=== PATIENT | female | born 1935 | race Caucasian/White ===

== ENCOUNTER 2020-04-06 15:56 | Emergency (ER) | payer MEDICARE, MEDICAID ==
[~2020-04-06] VITALS: Ht 157.5 cm; Wt 81.4 kg
--- NOTE | 2020-04-06 16:03 | NUR ---
PT DAUGHTER (AGUILAR) [phone]
[2020-04-06] MEDS ORDERED: pantoprazole 40mg Tablet.DR PO ONE (16:25)
[2020-04-06] MEDS ORDERED: mag hydrox/Alum hydrox/simeth 30ml oral suspension PO ONE (16:25)
[2020-04-06 17:27] LABS: ALANINE AMINOTRANSFERASE 19 U/L (12-78); ALBUMIN/GLOBULIN RATIO 0.8 (1.1-1.5); ALKALINE PHOSPHATASE 67 IU/L (46-116); ANION GAP 9 (8-16); ASPARTATE AMINO TRANSFERASE 28 U/L (10-37); BILIRUBIN,TOTAL 0.7 MG/DL (0.1-1.0); BLOOD UREA NITROGEN 24 MG/DL (7-18); BUN/CREATININE RATIO 14.7 (6.6-38.0); CALCIUM 8.2 MG/DL (8.5-10.1); CHLORIDE 100 MMOL/L (99-107); CREATININE 1.63 MG/DL (0.40-0.90); GLUCOSE 117 MG/DL (70-104); LIPASE 397 U/L (73-393); POTASSIUM 3.2 MMOL/L (3.5-5.1); SODIUM 138 MMOL/L (135-145); TOTAL CARBON DIOXIDE 29.3 MMOL/L (24-32); TOTAL PROTEIN 6.8 G/DL (6.4-8.2); eGFR 30 ML/MIN
[2020-04-06 17:40] LABS: BASOPHILS % (AUTO) 0.4 % (0-1); EOSINOPHILS # (AUTO) 0.2 X10'3 (0-0.9); HEMATOCRIT 29.9 % (35.0-45.0); HEMOGLOBIN 10.2 g/dl (12.0-16.0); LYMPHOCYTES # (AUTO) 0.7 X10'3 (1.1-4.8); LYMPHOCYTES % (AUTO) 9.2 % (21-51); MEAN CORPUSCULAR HEMOGLOBIN 29.3 PG (27.0-31.0); MEAN CORPUSCULAR VOLUME 86.3 FL (78-98); MEAN PLATELET VOLUME 7.6 FL (7.4-10.4); MONOCYTES # (AUTO) 0.7 X10'3 (0-0.9); MONOCYTES % (AUTO) 9.8 % (2-12); NEUTROPHILS # (AUTO) 5.8 X10'3 (1.8-7.7); NEUTROPHILS % (AUTO) 78.6 % (42-75); PLATELET COUNT 176 X10'3 (140-440); RED BLOOD COUNT 3.47 X10'6 (4.20-5.60); RED CELL DISTRIBUTION WIDTH 15.7 % (11.5-14.5); WHITE BLOOD COUNT 7.4 X10'3 (4.5-11.0)
--- NOTE | 2020-04-06 18:22 | NUR ---
Ultrasound called and tech will be here in approx 20 min.
[2020-04-06] MEDS ORDERED: normal saline 1000ML IV soln IVB ONE (19:20)
[2020-04-06] MEDS ORDERED: pantoprazole 40 MG vial IV ONE (19:30)
[2020-04-06 20:41] VITALS: BP 98/58
== END 2020-04-06 20:49 | disposition home or self-care (01) ==
LOC: ER 15:56
DX: K85.90 Acute pancreatitis without necrosis or infection, unspecified (principal); G89.29 Other chronic pain; Z90.49 Acquired absence of other specified parts of digestive tract; Z98.890 Other specified postprocedural states; Z88.5 Allergy status to narcotic agent
CPT/HCPCS: 36415; 74018; 74176; 76700; 80053; 83690; 84484; 85025; 96374; 99285; C9113; J7030; 93005

== ENCOUNTER 2020-08-21 02:01 | Emergency (ER) | payer MEDICARE, MEDICAID ==
[~2020-08-21] VITALS: Ht 160 cm; Wt 81.8 kg
[2020-08-21] MEDS ORDERED: fentaNYL/PF 50MCG/1 ML 2ML syringe IV ONE (02:45)
[2020-08-21] MEDS ORDERED: acetaminophen 325mg tablet PO ONE (02:45)
[2020-08-21] MEDS ORDERED: ondansetron/PF 4mg/2ml inj IV ONE (02:45)
--- NOTE | 2020-08-21 05:01 | NUR ---
VASCULAR PAGED AT [phone]
--- NOTE | 2020-08-21 05:14 | NUR ---
VASCULAR CONTACTED [phone]. LEFT MESSAGE
[2020-08-21] MEDS ORDERED: morphine 4 MG/ML inj SYRINge IV ONE (05:45)
[2020-08-21 08:10] VITALS: BP 186/110
--- NOTE | 2020-08-21 09:30 | NUR ---
SPOKE WITH PT'S FRIEND MOLINA, SHE STATES SHE WILL BE HERE IN 45 MINUTES TO INCREMENT MANAGER PT.
== END 2020-08-21 10:17 | disposition home or self-care (01) ==
LOC: ER 02:02
DX: M71.21 Synovial cyst of popliteal space [Baker], right knee (principal); M54.2 Cervicalgia; G89.29 Other chronic pain; Z90.49 Acquired absence of other specified parts of digestive tract; Z88.8 Allergy status to other drugs, medicaments and biological substances
CPT/HCPCS: 29505; 70450; 72125; 73564; 93971; 96374; 96375; 99285; J2270; J2405; J3010

== ENCOUNTER 2021-09-15 09:37 | Emergency (ER) | payer MEDICARE, MEDICAID ==
[~2021-09-15] VITALS: Ht 157.5 cm; Wt 82.1 kg
[~2021-09-15 09:37] MED LIST: AMLO10TA13 PO; ASPI-10 PO; ATOR40TA72 PO; CHOL100025 PO; FLUO40CA PO; GABA300C PO; LEVO50TA8 PO; MAGN200T PO; METO-384 PO; PANT40TA54 PO; POTA-197 PO; PRAM0.5T12 PO; VIT1CAPS9 PO; VITA1TAB37 PO
[2021-09-15 10:42] LABS: BASOPHILS % (AUTO) 0.5 % (0-1); EOSINOPHILS # (AUTO) 0.2 X10'3 (0-0.9); EOSINOPHILS % (AUTO) 2.2 % (0-6); HEMATOCRIT 35.5 % (35.0-45.0); HEMOGLOBIN 11.9 g/dl (12.0-16.0); LYMPHOCYTES # (AUTO) 0.7 X10'3 (1.1-4.8); LYMPHOCYTES % (AUTO) 10.9 % (21-51); MEAN CORPUSCULAR HEMOGLOBIN 31.2 PG (27.0-31.0); MEAN CORPUSCULAR HGB CONC 33.5 g/dL (33.0-36.5); MEAN CORPUSCULAR VOLUME 93.1 FL (78-98); MEAN PLATELET VOLUME 7.7 FL (7.4-10.4); MONOCYTES # (AUTO) 0.6 X10'3 (0-0.9); MONOCYTES % (AUTO) 8.7 % (2-12); NEUTROPHILS # (AUTO) 5.3 X10'3 (1.8-7.7); NEUTROPHILS % (AUTO) 77.7 % (42-75); PLATELET COUNT 194 X10'3 (140-440); RED BLOOD COUNT 3.82 X10'6 (4.20-5.60); RED CELL DISTRIBUTION WIDTH 14.8 % (11.5-14.5); WHITE BLOOD COUNT 6.9 X10'3 (4.5-11.0)
[2021-09-15 11:00] LABS: ALANINE AMINOTRANSFERASE 21 U/L (12-78); ALBUMIN 3.5 G/DL (3.4-5.0); ALKALINE PHOSPHATASE 70 IU/L (46-116); ANION GAP 12 (8-16); ASPARTATE AMINO TRANSFERASE 22 U/L (10-37); BILIRUBIN,TOTAL 0.6 MG/DL (0.1-1.0); BLOOD UREA NITROGEN 39 MG/DL (7-18); BUN/CREATININE RATIO 25.3 (6.6-38.0); CALCIUM 7.8 MG/DL (8.5-10.1); CHLORIDE 105 MMOL/L (99-107); CREATININE 1.54 MG/DL (0.40-0.90); GLUCOSE 107 MG/DL (70-104); POTASSIUM 4.4 MMOL/L (3.5-5.1); SODIUM 145 MMOL/L (135-145); TOTAL CARBON DIOXIDE 28.5 MMOL/L (24-32); TOTAL PROTEIN 7.1 G/DL (6.4-8.2); eGFR 32 ML/MIN
[2021-09-15] MEDS ORDERED: ondansetron/PF 4mg/2ml inj IV ONE (11:40)
[2021-09-15] MEDS ORDERED: morphine 4 MG/ML inj SYRINge IV ONE (11:40)
[2021-09-15 12:04] LABS: UA COLLECTION TYPE NON-SPECIFIED
[2021-09-15 12:05] LABS: CLARITY,URINE SLIGHTLY CLOUDY (Clear); COLOR,URINE YELLOW (Yellow); GLUCOSE, URINE NEGATIVE (Neg); KETONES,URINE NEGATIVE (Neg); LEUKOCYTE ESTERASE ,URINE NEGATIVE (Neg); NITRITES, URINE NEGATIVE (Neg); OCCULT BLOOD,URINE NEGATIVE (Neg); PROTEIN,URINE 30 mg/dl (Neg); UROBILINOGEN,URINE 0.2 E.U/dL (0.2-1.0)
[2021-09-15 12:14] LABS: BACTERIA,URINE 1+ /HPF (Neg); RBC,URINE NONE SEEN /HPF (0-2)
[2021-09-15 12:15] LABS: MUCUS STRANDS NONE SEEN /LPF (Neg); SQUAMOUS EPITHELIAL CELL,UR MANY /LPF (FEW); WBC CLUMPS,URINE FEW /HPF (NEGATIVE)
[2021-09-15 12:17] LABS: TRANSITIONAL EPI CELLS,URINE MODERATE /HPF
[2021-09-15 12:40] VITALS: BP 136/72
== END 2021-09-15 14:25 | disposition home or self-care (01) ==
LOC: ER 09:39
DX: M25.532 Pain in left wrist (principal); M25.522 Pain in left elbow; R10.12 Left upper quadrant pain; G89.29 Other chronic pain; Z87.81 Personal history of (healed) traumatic fracture; Z87.19 Personal history of other diseases of the digestive system; Z90.49 Acquired absence of other specified parts of digestive tract; Z79.82 Long term (current) use of aspirin; Z79.899 Other long term (current) drug therapy; Z88.5 Allergy status to narcotic agent; Z88.8 Allergy status to other drugs, medicaments and biological substances
CPT/HCPCS: 36415; 71250; 73030; 73080; 73090; 73502; 73564; 74176; 80053; 81001; 85025; 96374; 96375; 99285; J2270; J2405

== ENCOUNTER 2021-10-10 11:49 | Emergency (ER) | payer MEDICARE, MEDICAID ==
[~2021-10-10] VITALS: Ht 157.5 cm; Wt 81.8 kg
[2021-10-10] MEDS ORDERED: ONDA-103 PO ×2 (15:41)
[2021-10-10 16:14] VITALS: BP 114/85
== END 2021-10-10 16:17 | disposition home or self-care (01) ==
LOC: ER 11:50
DX: M79.604 Pain in right leg (principal); G62.9 Polyneuropathy, unspecified; G89.29 Other chronic pain; F17.200 Nicotine dependence, unspecified, uncomplicated; Z87.440 Personal history of urinary (tract) infections; Z90.89 Acquired absence of other organs; Z90.49 Acquired absence of other specified parts of digestive tract; Z98.890 Other specified postprocedural states; Z88.5 Allergy status to narcotic agent; Z88.8 Allergy status to other drugs, medicaments and biological substances; Z79.82 Long term (current) use of aspirin; Z79.899 Other long term (current) drug therapy
CPT/HCPCS: 99285

== ENCOUNTER 2022-03-05 11:58 | Inpatient (IN) | payer MEDICARE, MEDICAID ==
[~2022-03-05] VITALS: Ht 165.1 cm; Wt 83.1 kg
[~2022-03-05 11:58] MED LIST changes: +AMOX1TAB PO; +HYDR-3968 PO; +LORA10TA7 PO; +PENT400T17 PO; +ROPI1TAB6 PO
[2022-03-05 12:25] LABS: BASOPHILS % (AUTO) 0.5 % (0-1); EOSINOPHILS # (AUTO) 0.2 X10'3 (0-0.9); EOSINOPHILS % (AUTO) 2.8 % (0-6); HEMATOCRIT 36.8 % (35.0-45.0); HEMOGLOBIN 12.2 g/dl (12.0-16.0); LYMPHOCYTES # (AUTO) 0.9 X10'3 (1.1-4.8); LYMPHOCYTES % (AUTO) 14.5 % (21-51); MEAN CORPUSCULAR HEMOGLOBIN 29.2 PG (27.0-31.0); MEAN CORPUSCULAR HGB CONC 33.2 g/dL (33.0-36.5); MEAN PLATELET VOLUME 8.2 FL (7.4-10.4); MONOCYTES # (AUTO) 0.5 X10'3 (0-0.9); MONOCYTES % (AUTO) 7.5 % (2-12); NEUTROPHILS # (AUTO) 4.7 X10'3 (1.8-7.7); NEUTROPHILS % (AUTO) 74.7 % (42-75); PLATELET COUNT 199 X10'3 (140-440); RED BLOOD COUNT 4.19 X10'6 (4.20-5.60); RED CELL DISTRIBUTION WIDTH 15.9 % (11.5-14.5); WHITE BLOOD COUNT 6.3 X10'3 (4.5-11.0)
[2022-03-05 12:39] LABS: APTT 26 SECONDS (22-32)
[2022-03-05 12:42] LABS: ALANINE AMINOTRANSFERASE 10 U/L (12-78); ALBUMIN 3.3 G/DL (3.4-5.0); ALBUMIN/GLOBULIN RATIO 0.9 (1.1-1.5); ALKALINE PHOSPHATASE 73 IU/L (46-116); ANION GAP 9 (8-16); ASPARTATE AMINO TRANSFERASE 18 U/L (10-37); BILIRUBIN,TOTAL 0.3 MG/DL (0.1-1.0); BLOOD UREA NITROGEN 26 MG/DL (7-18); CALCIUM 8.1 MG/DL (8.5-10.1); CHLORIDE 104 MMOL/L (99-107); GLUCOSE 106 MG/DL (70-104); POTASSIUM 3.8 MMOL/L (3.5-5.1); SODIUM 142 MMOL/L (135-145); TOTAL PROTEIN 6.8 G/DL (6.4-8.2); eGFR 39 ML/MIN
[2022-03-05] MEDS ORDERED: acetaminophen 325mg tablet PO PRN (15:00)
[2022-03-05] MEDS ORDERED: ondansetron/PF 4mg/2ml inj IV PRN (15:00)
[2022-03-05] MEDS ORDERED: potassium CL 10mEq/100ml bag 100 ML IV PRN (15:00)
[2022-03-05] MEDS ORDERED: magnesium 2GM in 50ml NS 50 ML IV PRN (15:00)
[2022-03-05] MEDS ORDERED: POTASSIUM BICARB 20meq eff tab 20 MEQ TABLET.EFF PO PRN (15:00)
[2022-03-05] MEDS: normal saline 1000ml 1,000 ML IV SCH ×2 (15:00→20:39)
[2022-03-05] MEDS ORDERED: magnesium 4gm in 100ml NS 100 ML IV PRN (15:00)
[2022-03-05] MEDS ORDERED: magnesium Cl slow-release 64mg tablet PO PRN (15:00)
--- NOTE | 2022-03-05 16:05 | NUR ---
TC FROM DAUGHTER, KYARA CARTWRIGHT, FOR CONDITION REPORT.
[2022-03-05] MEDS ORDERED: ATOR40TA71 PO (16:11)
[2022-03-05] MEDS ORDERED: DULO60CA65 PO (16:15)
[2022-03-05] MEDS ORDERED: HYDR-3968 PO (16:15)
[2022-03-05] MEDS ORDERED: GABA300C PO (16:15)
[2022-03-05] MEDS ORDERED: LEVO50TA8 PO (16:18)
[2022-03-05] MEDS ORDERED: LORA10TA7 PO (16:18)
[2022-03-05] MEDS ORDERED: PANT-47 PO (16:19)
[2022-03-05] MEDS ORDERED: PENT400T17 PO (16:19)
[2022-03-05] MEDS ORDERED: LOSA50TA64 PO (16:20)
[2022-03-05] MEDS ORDERED: ROPI1TAB6 PO (16:22)
[2022-03-05] MEDS ORDERED: CYAN-34 PO (16:24)
[2022-03-05 19:35] VITALS: BP 146/78
--- NOTE | 2022-03-05 19:35 | NUR ---
PATIENT ADMITTED TO ROOM 4017 FROM ER FOR STROKE LIKE SYMPTOMS AND CKD 3. PLACED COMFORTABLE IN BED VITAL SIGNS TAKEN AND RECORDED.
[2022-03-05] MEDS: K and/or MAG REPLACEMENT MC SCH (20:00)
[2022-03-05] MEDS: heparin, porcine 5000 units/ml vial SQ SCH (20:47)
[2022-03-05] MEDS ORDERED: temazepam 15mg capsule PO PRN (21:00)
[2022-03-05] MEDS: ROPINIRole 1mg tablet PO SCH (21:08)
[2022-03-05] MEDS: gabapentin 300mg capsule PO SCH (21:09)
[2022-03-05] MEDS: pantoprazole 40mg Tablet.DR PO SCH (21:09)
[2022-03-05 22:00] VITALS: BP 155/84
[2022-03-06 02:00] VITALS: BP 98/65
[2022-03-06] MEDS: acetaminophen 325mg tablet PO PRN ×3 (02:49→23:39)
[2022-03-06 06:30] VITALS: BP 191/80
--- NOTE | 2022-03-06 06:30 | NUR ---
Problems reprioritized. Patient report given, questions answered & plan of care reviewed with TABITHA LINK.
[2022-03-06 06:59] LABS: BASOPHILS % (AUTO) 0.4 % (0-1); EOSINOPHILS # (AUTO) 0.2 X10'3 (0-0.9); EOSINOPHILS % (AUTO) 3.7 % (0-6); HEMATOCRIT 36.8 % (35.0-45.0); HEMOGLOBIN 12.4 g/dl (12.0-16.0); LYMPHOCYTES # (AUTO) 1.1 X10'3 (1.1-4.8); LYMPHOCYTES % (AUTO) 19.2 % (21-51); MEAN CORPUSCULAR HEMOGLOBIN 29.9 PG (27.0-31.0); MEAN CORPUSCULAR HGB CONC 33.6 g/dL (33.0-36.5); MEAN CORPUSCULAR VOLUME 88.7 FL (78-98); MEAN PLATELET VOLUME 8.2 FL (7.4-10.4); MONOCYTES # (AUTO) 0.4 X10'3 (0-0.9); MONOCYTES % (AUTO) 7.5 % (2-12); NEUTROPHILS % (AUTO) 69.2 % (42-75); PLATELET COUNT 167 X10'3 (140-440); RED BLOOD COUNT 4.15 X10'6 (4.20-5.60); RED CELL DISTRIBUTION WIDTH 15.8 % (11.5-14.5); WHITE BLOOD COUNT 5.8 X10'3 (4.5-11.0)
[2022-03-06 07:07] LABS: ALANINE AMINOTRANSFERASE 11 U/L (12-78); ALBUMIN/GLOBULIN RATIO 0.9 (1.1-1.5); ALKALINE PHOSPHATASE 66 IU/L (46-116); ANION GAP 12 (8-16); ASPARTATE AMINO TRANSFERASE 19 U/L (10-37); BILIRUBIN,TOTAL 0.6 MG/DL (0.1-1.0); BLOOD UREA NITROGEN 22 MG/DL (7-18); CALCIUM 7.9 MG/DL (8.5-10.1); CHLORIDE 103 MMOL/L (99-107); CHOL/HDL RATIO 2.8 (0.00-4.99); CHOLESTEROL 113 MG/DL (0-200); CREATININE 1.22 MG/DL (0.40-0.90); GLUCOSE 100 MG/DL (70-104); HDL CHOLESTEROL 41 MG/DL (35-60); LDL CHOLESTEROL 45 MG/DL (50-100); SODIUM 144 MMOL/L (135-145); TOTAL CARBON DIOXIDE 29.5 MMOL/L (24-32); TOTAL PROTEIN 6.2 G/DL (6.4-8.2); TRIGLYCERIDES 152 MG/DL (20-135); eGFR 42 ML/MIN
--- NOTE | 2022-03-06 07:21 | NUR ---
PAGER ID: [phone] MESSAGE: [phone] Kellie Morillo: Critical K 3.0. Replacement ordered already and will be started. thanks! lien [id number]
[2022-03-06] MEDS: POTASSIUM BICARB 20meq eff tab 20 MEQ TABLET.EFF PO PRN ×3 (07:34→17:05)
[2022-03-06] MEDS: losartan 50mg tablet PO SCH (07:35)
[2022-03-06] MEDS: gabapentin 300mg capsule PO SCH ×2 (07:35→20:12)
[2022-03-06] MEDS: levoTHYROXINE 25mcg tablet PO SCH (07:35)
[2022-03-06] MEDS: loratadine 10mg tablet PO SCH (07:35)
[2022-03-06] MEDS: ROPINIRole 1mg tablet PO SCH ×3 (07:37→20:12)
[2022-03-06] MEDS: atorvastatin 20mg tablet PO SCH (07:37)
[2022-03-06] MEDS: pantoprazole 40mg Tablet.DR PO SCH ×2 (07:37→20:12)
[2022-03-06] MEDS: aspirin 81mg, enteric-coated 1 TAB TABLET.DR PO SCH (07:37)
[2022-03-06] MEDS: duloxetine 30mg CAPSULE.DR PO SCH (07:37)
[2022-03-06] MEDS: heparin, porcine 5000 units/ml vial SQ SCH ×2 (07:38→20:12)
[2022-03-06] MEDS: K and/or MAG REPLACEMENT MC SCH ×2 (07:39→20:00)
--- NOTE | 2022-03-06 10:00 | NUR ---
T/c to MRI. no answer.
[2022-03-06 11:15] VITALS: BP 144/76
--- NOTE | 2022-03-06 12:44 | NUR ---
Pt awake and alert, Has word searching issues that come and go. Initially when I visited this morning, pt's words were slurred, however, mouth was extremely dry. After given drink of water slurring ceased. Very shaky in attempts to do finger to nose bilaterally. Right leg ataxia noted with heel to cha. MRI this afternoon. Has chronic issues with left hand..dropping things. This pt attributes to carpal tunnel. Not a new problem this admission. No extremity weakness noted. Ahasia is mild currently.
[2022-03-06 14:22] VITALS: BP 160/78
--- NOTE | 2022-03-06 16:20 | NUR ---
Patients daughter is here at bedside. however now, there is only one PT available and she said it is too late to ambulate the patient.
[2022-03-06] MEDS: normal saline 1000ml 1,000 ML IV SCH (17:05)
[2022-03-06 18:00] VITALS: BP 150/97
--- NOTE | 2022-03-06 18:20 | NUR ---
Problems reprioritized. Patient report given, questions answered & plan of care reviewed with GISELLA Vanegas.
[2022-03-06 22:00] VITALS: BP 183/93
[2022-03-07] VITALS (16 sets, daily range): BP systolic 135–219; BP diastolic 53–111
[2022-03-07] MEDS ORDERED: LORazepam 2 mg/ml vial IV ONE ×2 (03:00→13:00)
--- NOTE | 2022-03-07 03:00 | NUR ---
Pt. was taken to the bathroom and after she walked back she start complaining of a bad headache.Vitals has been taken and BR 219/111, HR 101.Pt. keep telling me I am not feeling good.I ask one of the nurse to called Rapid response.ICU nurse and Dr. Espinoza came to the unit to see the pt.Pt. was having a stroke symptoms.Morphine was given for pain and CT order was done.Pt. was going to be transfer to ICU for close observation.We will continue with pt. care.
[2022-03-07] MEDS ORDERED: morphine 4 MG/ML inj SYRINge ONE ×2 (03:05→03:18)
[2022-03-07] MEDS ORDERED: morphine 2 MG/ML inj. syringe IV ONE (03:05)
[2022-03-07] MEDS ORDERED: HYDROmorphone 1 mg/ml syringe IM ONE (03:35)
--- NOTE | 2022-03-07 04:45 | NUR ---
Pt arrived at room 2013 accompanied by Samira Grossman RN and ORI Michel. Pt transferred over to CICU bed and placed on our monitors. Pt still profoundly hypertensive and complaining of 10/10 pain behind left eye with photophobia. Pt able to follow commands, speech is garbled, pt has a hard time finding the right words. Mild right sided facial droop which is base line for the pt from old stroke. Soaker Helper are equal, pushes and pulls equal with feet. Pulses bounding throughout. Skin pink, warm, dry, and intact. Prophylactic dressing in place to coccyx.
[2022-03-07] MEDS ORDERED: LIDOcaine 2% 10ml TOPICAL JELLY (Urojet) TP ONE (04:55)
--- NOTE | 2022-03-07 05:02 | NUR ---
Patient in room [facility] 2014. I have received report from NIKOLAY Antony and had the opportunity to ask questions and assume patient care. Addendum: 03/07/22 at 0507 by Romina Yuen LVN *Correction* At 1800 on 03/06/2022 I received report from NIKOLAY Antony on ortho/neuro floor room [facility].
[2022-03-07] MEDS: normal saline 1000ml 1,000 ML IV SCH ×2 (05:06→23:28)
[2022-03-07] MEDS ORDERED: niCARDipine-NS 40mg/200ml IVPB 200 ML IV ONE (05:11)
--- NOTE | 2022-03-07 05:30 | NUR ---
Received orders for Chip suresh and gaurav streeter.
[2022-03-07] MEDS: niCARDipine-NS 40mg/200ml IVPB 200 ML IV SCH ×3 (05:32→20:55)
--- NOTE | 2022-03-07 06:58 | NUR ---
Problems reprioritized. Patient report given, questions answered & plan of care reviewed with Rg LINK.
[2022-03-07 07:01] LABS: BASOPHILS % (AUTO) 0.5 % (0-1); EOSINOPHILS # (AUTO) 0.2 X10'3 (0-0.9); EOSINOPHILS % (AUTO) 4.2 % (0-6); HEMATOCRIT 41.7 % (35.0-45.0); HEMOGLOBIN 13.8 g/dl (12.0-16.0); MEAN CORPUSCULAR HEMOGLOBIN 29.7 PG (27.0-31.0); MEAN CORPUSCULAR HGB CONC 33.2 g/dL (33.0-36.5); MEAN CORPUSCULAR VOLUME 89.4 FL (78-98); MEAN PLATELET VOLUME 8.4 FL (7.4-10.4); MONOCYTES # (AUTO) 0.4 X10'3 (0-0.9); MONOCYTES % (AUTO) 7.3 % (2-12); NEUTROPHILS # (AUTO) 3.7 X10'3 (1.8-7.7); PLATELET COUNT 153 X10'3 (140-440); RED BLOOD COUNT 4.66 X10'6 (4.20-5.60); RED CELL DISTRIBUTION WIDTH 15.9 % (11.5-14.5); WHITE BLOOD COUNT 5.3 X10'3 (4.5-11.0)
[2022-03-07 07:04] LABS: ALANINE AMINOTRANSFERASE 14 U/L (12-78); ALBUMIN 3.5 G/DL (3.4-5.0); ALBUMIN/GLOBULIN RATIO 0.9 (1.1-1.5); ALKALINE PHOSPHATASE 79 IU/L (46-116); ANION GAP 7 (8-16); ASPARTATE AMINO TRANSFERASE 24 U/L (10-37); BILIRUBIN,TOTAL 0.7 MG/DL (0.1-1.0); BLOOD UREA NITROGEN 21 MG/DL (7-18); BUN/CREATININE RATIO 15.9 (6.6-38.0); CALCIUM 8.3 MG/DL (8.5-10.1); CHLORIDE 103 MMOL/L (99-107); CREATININE 1.32 MG/DL (0.40-0.90); GLUCOSE 130 MG/DL (70-104); POTASSIUM 3.7 MMOL/L (3.5-5.1); SODIUM 142 MMOL/L (135-145); TOTAL CARBON DIOXIDE 32.5 MMOL/L (24-32); TOTAL PROTEIN 7.3 G/DL (6.4-8.2); eGFR 38 ML/MIN
[2022-03-07] MEDS: heparin, porcine 5000 units/ml vial SQ SCH ×2 (08:00→20:18)
[2022-03-07] MEDS: loratadine 10mg tablet PO SCH (08:00)
[2022-03-07] MEDS: K and/or MAG REPLACEMENT MC SCH ×2 (08:00→19:34)
[2022-03-07] MEDS: levoTHYROXINE 25mcg tablet PO SCH (08:00)
[2022-03-07] MEDS: duloxetine 30mg CAPSULE.DR PO SCH (08:00)
[2022-03-07] MEDS: losartan 50mg tablet PO SCH (08:00)
[2022-03-07] MEDS: atorvastatin 20mg tablet PO SCH (09:00)
[2022-03-07] MEDS: aspirin 81mg, enteric-coated 1 TAB TABLET.DR PO SCH (09:00)
[2022-03-07] MEDS: gabapentin 300mg capsule PO SCH ×2 (09:00→20:18)
[2022-03-07] MEDS: pantoprazole 40mg Tablet.DR PO SCH ×2 (09:00→20:18)
[2022-03-07] MEDS: ROPINIRole 1mg tablet PO SCH ×3 (09:00→20:18)
--- NOTE | 2022-03-07 11:00 | NUR ---
Pt transferred to CC during night following onset of severe headache and htn crisis. Received morphine 4 mg for headache around 0300. Upon my arrival to CC pt is very somnolent. Arouses to voice and repeated light stimulation to open eyes. Mumbles incoherently. Not following commands, however, does move all extremities when stimulated. On Cardene for HTN to keep sbp 140-160. Currently on 2.5 MG. Became nauseated in my presence and vomited a small amount of undigested food. Zofran given by bedside RNHeidi. I spoke with Dr Delgado regarding pt status. NCCT ordered as MRI screening form is pending completion. Family has yet to return calls in regards to screening form. [address] via bed on CM and 2L 02 via NC. Arouses to groan with transfer from bed to CT table. Remain somnolent.
[2022-03-07] MEDS ORDERED: gabapentin 300mg capsule PO SCH (12:57)
[2022-03-07] MEDS ORDERED: LORazepam 2 mg/ml vial IM ONE (13:00)
[2022-03-07 16:05] LABS: GLUCOSE,CSF 76 MG/DL (40-75); TOTAL PROTEIN,CSF 163 MG/DL (30-60)
[2022-03-07 17:00] LABS: EOSINOPHILS,CSF 1 %; LYMPHOCYTES,CSF 8 % (40-80); MONOCYTES,CSF 2 % (15-45); NEUTRO,CSF 89 % (0-6)
[2022-03-07 17:08] LABS: APPEARANCE,CSF BLOODY; CSF RBC 29000 /CU MM (0); CSF SUPERNATANT COLOR COLORLESS; CSF VOLUME 4 ML; TUBE# COUNTED 1
[2022-03-07 17:11] LABS: CSF WBC CT 11 /CU MM (0-5)
[2022-03-07 17:12] LABS: APPEARANCE,CSF BLOODY; CSF RBC 11500 /CU MM (0); CSF SUPERNATANT COLOR COLORLESS; CSF VOLUME 4 ML; CSF WBC CT 0 /CU MM (0-5); TUBE# COUNTED 3
[2022-03-08] VITALS (24 sets, daily range): BP systolic 107–169; BP diastolic 42–74
--- NOTE | 2022-03-08 06:00 | NUR ---
Patient in room CICU 2013. I have received report from Elvira LINK and had the opportunity to ask questions and assume patient care.
[2022-03-08 06:24] LABS: BASOPHILS % (AUTO) 0.4 % (0-1); EOSINOPHILS # (AUTO) 0.1 X10'3 (0-0.9); EOSINOPHILS % (AUTO) 2.2 % (0-6); HEMATOCRIT 38.5 % (35.0-45.0); HEMOGLOBIN 12.6 g/dl (12.0-16.0); LYMPHOCYTES # (AUTO) 0.7 X10'3 (1.1-4.8); LYMPHOCYTES % (AUTO) 11.1 % (21-51); MEAN CORPUSCULAR HEMOGLOBIN 28.9 PG (27.0-31.0); MEAN CORPUSCULAR HGB CONC 32.7 g/dL (33.0-36.5); MEAN CORPUSCULAR VOLUME 88.6 FL (78-98); MEAN PLATELET VOLUME 7.9 FL (7.4-10.4); MONOCYTES # (AUTO) 0.6 X10'3 (0-0.9); MONOCYTES % (AUTO) 8.6 % (2-12); NEUTROPHILS % (AUTO) 77.7 % (42-75); PLATELET COUNT 176 X10'3 (140-440); RED BLOOD COUNT 4.35 X10'6 (4.20-5.60); RED CELL DISTRIBUTION WIDTH 15.9 % (11.5-14.5); WHITE BLOOD COUNT 6.5 X10'3 (4.5-11.0)
[2022-03-08 07:00] LABS: ALANINE AMINOTRANSFERASE 12 U/L (12-78); ALBUMIN 2.8 G/DL (3.4-5.0); ALBUMIN/GLOBULIN RATIO 0.9 (1.1-1.5); ALKALINE PHOSPHATASE 68 IU/L (46-116); ANION GAP 9 (8-16); ASPARTATE AMINO TRANSFERASE 17 U/L (10-37); BILIRUBIN,TOTAL 0.7 MG/DL (0.1-1.0); BLOOD UREA NITROGEN 19 MG/DL (7-18); BUN/CREATININE RATIO 16.5 (6.6-38.0); CALCIUM 7.5 MG/DL (8.5-10.1); CHLORIDE 105 MMOL/L (99-107); CREATININE 1.15 MG/DL (0.40-0.90); GLUCOSE 113 MG/DL (70-104); POTASSIUM 3.7 MMOL/L (3.5-5.1); SODIUM 145 MMOL/L (135-145); TOTAL CARBON DIOXIDE 30.9 MMOL/L (24-32); eGFR 45 ML/MIN
[2022-03-08] MEDS: niCARDipine-NS 40mg/200ml IVPB 200 ML IV SCH ×3 (07:51→20:55)
[2022-03-08] MEDS: K and/or MAG REPLACEMENT MC SCH ×2 (08:00→20:00)
[2022-03-08] MEDS: levoTHYROXINE 25mcg tablet PO SCH (09:09)
[2022-03-08] MEDS: hydrALAZINE 25 MG tablet PO SCH ×2 (09:10→15:02)
[2022-03-08] MEDS: atorvastatin 20mg tablet PO SCH (09:10)
[2022-03-08] MEDS: ROPINIRole 1mg tablet PO SCH ×3 (09:12→21:32)
[2022-03-08] MEDS: loratadine 10mg tablet PO SCH (09:13)
[2022-03-08] MEDS: duloxetine 30mg CAPSULE.DR PO SCH (09:13)
[2022-03-08] MEDS: pantoprazole 40mg Tablet.DR PO SCH ×2 (09:15→21:33)
[2022-03-08] MEDS: aspirin 81mg, enteric-coated 1 TAB TABLET.DR PO SCH (09:15)
[2022-03-08] MEDS: gabapentin 300mg capsule PO SCH ×2 (09:16→21:33)
[2022-03-08] MEDS: losartan 50mg tablet PO SCH (09:17)
[2022-03-08] MEDS: heparin, porcine 5000 units/ml vial SQ SCH ×2 (09:18→21:32)
[2022-03-08] MEDS: acetaminophen 325mg tablet PO PRN (10:42)
--- NOTE | 2022-03-08 11:30 | NUR ---
Informed Dr. Delgado about pt complaint of headache s/p lumbar puncture from yesterday, MD stated to treat with tylenol, Also informed of pt having diarrhea, no new orders at this time.
[2022-03-08] MEDS: normal saline 1000ml 1,000 ML IV SCH (11:31)
[2022-03-08] MEDS: morphine 2 MG/ML inj. syringe IV PRN ×2 (13:58→19:36)
--- NOTE | 2022-03-08 18:30 | NUR ---
Problems reprioritized. Patient report given, questions answered & plan of care reviewed with NIKOLAY Fox. Addendum: 03/09/22 at 13 by Alana Richard RN Patient in room [facility] 2013. I have received report from NIKOLAY Fox and had the opportunity to ask questions and assume patient care.
--- NOTE | 2022-03-08 18:35 | NUR ---
Problems reprioritized. Patient report given, questions answered & plan of care reviewed with NIKOLAY Warner.
[2022-03-09] VITALS (18 sets, daily range): BP systolic 105–170; BP diastolic 45–76
[2022-03-09] MEDS: morphine 2 MG/ML inj. syringe IV PRN ×2 (00:15→16:51)
[2022-03-09] MEDS: hydrALAZINE 25 MG tablet PO SCH ×3 (00:16→16:52)
[2022-03-09] MEDS: normal saline 1000ml 1,000 ML IV SCH ×2 (04:48→20:21)
[2022-03-09] MEDS: niCARDipine-NS 40mg/200ml IVPB 200 ML IV SCH ×3 (04:55→22:16)
--- NOTE | 2022-03-09 06:13 | NUR ---
Problems reprioritized. Patient report given, questions answered & plan of care reviewed with NIKOLAY Fox.
--- NOTE | 2022-03-09 06:37 | NUR ---
Patient in room CICU 2013. I have received report from NIKOLAY Warner and had the opportunity to ask questions and assume patient care.
[2022-03-09 06:46] LABS: BASOPHILS % (AUTO) 0.3 % (0-1); EOSINOPHILS # (AUTO) 0.2 X10'3 (0-0.9); HEMOGLOBIN 11.1 g/dl (12.0-16.0); LYMPHOCYTES % (AUTO) 15.7 % (21-51); MEAN CORPUSCULAR HEMOGLOBIN 29.5 PG (27.0-31.0); MEAN CORPUSCULAR HGB CONC 33.6 g/dL (33.0-36.5); MEAN CORPUSCULAR VOLUME 87.8 FL (78-98); MEAN PLATELET VOLUME 8.1 FL (7.4-10.4); MONOCYTES # (AUTO) 0.5 X10'3 (0-0.9); MONOCYTES % (AUTO) 8.6 % (2-12); NEUTROPHILS # (AUTO) 4.5 X10'3 (1.8-7.7); NEUTROPHILS % (AUTO) 72.4 % (42-75); PLATELET COUNT 143 X10'3 (140-440); RED BLOOD COUNT 3.76 X10'6 (4.20-5.60); RED CELL DISTRIBUTION WIDTH 15.5 % (11.5-14.5); WHITE BLOOD COUNT 6.2 X10'3 (4.5-11.0)
[2022-03-09 06:55] LABS: ALANINE AMINOTRANSFERASE 13 U/L (12-78); ALBUMIN 2.5 G/DL (3.4-5.0); ALBUMIN/GLOBULIN RATIO 0.8 (1.1-1.5); ALKALINE PHOSPHATASE 61 IU/L (46-116); ANION GAP 8 (8-16); ASPARTATE AMINO TRANSFERASE 20 U/L (10-37); BILIRUBIN,TOTAL 0.6 MG/DL (0.1-1.0); BLOOD UREA NITROGEN 19 MG/DL (7-18); BUN/CREATININE RATIO 15.1 (6.6-38.0); CALCIUM 7.6 MG/DL (8.5-10.1); CHLORIDE 104 MMOL/L (99-107); CREATININE 1.26 MG/DL (0.40-0.90); GLUCOSE 104 MG/DL (70-104); POTASSIUM 3.3 MMOL/L (3.5-5.1); SODIUM 143 MMOL/L (135-145); TOTAL CARBON DIOXIDE 30.8 MMOL/L (24-32); TOTAL PROTEIN 5.6 G/DL (6.4-8.2); eGFR 40 ML/MIN
[2022-03-09] MEDS ORDERED: POTASSIUM BICARB 20meq eff tab 20 MEQ TABLET.EFF PO PRN (07:05)
[2022-03-09] MEDS ORDERED: potassium CL 10mEq/100ml bag 100 ML IV PRN (07:05)
[2022-03-09] MEDS: ROPINIRole 1mg tablet PO SCH ×3 (07:55→20:21)
[2022-03-09] MEDS: losartan 50mg tablet PO SCH (07:55)
[2022-03-09] MEDS: atorvastatin 20mg tablet PO SCH (07:56)
[2022-03-09] MEDS: duloxetine 30mg CAPSULE.DR PO SCH (07:57)
[2022-03-09] MEDS: levoTHYROXINE 25mcg tablet PO SCH (07:58)
[2022-03-09] MEDS: K and/or MAG REPLACEMENT MC SCH ×2 (08:00→20:00)
[2022-03-09] MEDS: POTASSIUM BICARB 20meq eff tab 20 MEQ TABLET.EFF PO PRN ×2 (08:02→12:08)
[2022-03-09] MEDS: aspirin 81mg, enteric-coated 1 TAB TABLET.DR PO SCH (08:08)
[2022-03-09] MEDS: pantoprazole 40mg Tablet.DR PO SCH ×2 (08:08→20:21)
[2022-03-09] MEDS: loratadine 10mg tablet PO SCH (08:08)
[2022-03-09] MEDS: gabapentin 300mg capsule PO SCH ×2 (08:09→20:21)
[2022-03-09] MEDS: heparin, porcine 5000 units/ml vial SQ SCH ×2 (08:11→20:21)
[2022-03-09] MEDS ORDERED: magnesium 4gm in 100ml NS 100 ML IV PRN (08:30)
[2022-03-09] MEDS ORDERED: magnesium 2GM in 50ml NS 50 ML IV PRN (08:30)
[2022-03-09] MEDS: magnesium Cl slow-release 64mg tablet PO PRN (09:30)
--- NOTE | 2022-03-09 10:00 | NUR ---
Dr. Delgado informed of patient's K level (3.3) and Mag level (1.0). Replacement was ordered.
--- NOTE | 2022-03-09 14:08 | NUR ---
Problems reprioritized. Patient report given, questions answered & plan of care reviewed with Tele nurse Anjana RN over the phone.
--- NOTE | 2022-03-09 14:50 | NUR ---
Received pt via bed from CICU, no change in previous assessment. Placed in blackduck bed, call light in reach.
--- NOTE | 2022-03-09 15:34 | NUR ---
Patient transferred to room 3027B with all belongings. Nurse Anjana RN at bedside to receive patient. Daughter informed of transfer.
--- NOTE | 2022-03-09 17:30 | NUR ---
Pt c/o sharp pain under left breast, she states she had it while in CICU but no action was taken. Did Stat EKG noted no changes from previous one. Dr Schuler has taken over pt care, will call and discuss findings with him.
--- NOTE | 2022-03-09 18:48 | NUR ---
Problems reprioritized. Patient report given, questions answered & plan of care reviewed with NIKOLAY Og.
[2022-03-09] MEDS: methyl salicylate/menthol cream 57gm TP SCH (20:21)
[2022-03-10 02:00] VITALS: BP 148/56
[2022-03-10] MEDS: niCARDipine-NS 40mg/200ml IVPB 200 ML IV SCH ×2 (04:55→12:55)
--- NOTE | 2022-03-10 06:35 | NUR ---
Problems reprioritized. Patient report given, questions answered & plan of care reviewed with NIKOLAY Mckinley.
[2022-03-10 06:43] LABS: BASOPHILS % (AUTO) 0.4 % (0-1); EOSINOPHILS # (AUTO) 0.1 X10'3 (0-0.9); EOSINOPHILS % (AUTO) 1.9 % (0-6); HEMATOCRIT 32.1 % (35.0-45.0); HEMOGLOBIN 10.8 g/dl (12.0-16.0); LYMPHOCYTES # (AUTO) 0.6 X10'3 (1.1-4.8); LYMPHOCYTES % (AUTO) 11.8 % (21-51); MEAN CORPUSCULAR HEMOGLOBIN 29.7 PG (27.0-31.0); MEAN CORPUSCULAR HGB CONC 33.5 g/dL (33.0-36.5); MEAN CORPUSCULAR VOLUME 88.5 FL (78-98); MEAN PLATELET VOLUME 8.2 FL (7.4-10.4); MONOCYTES # (AUTO) 0.5 X10'3 (0-0.9); MONOCYTES % (AUTO) 10.1 % (2-12); NEUTROPHILS % (AUTO) 75.8 % (42-75); PLATELET COUNT 136 X10'3 (140-440); RED BLOOD COUNT 3.62 X10'6 (4.20-5.60); RED CELL DISTRIBUTION WIDTH 15.4 % (11.5-14.5); WHITE BLOOD COUNT 5.3 X10'3 (4.5-11.0)
--- NOTE | 2022-03-10 06:43 | NUR ---
Patient in room PCU 3027. I have received report from SUSAN LINK and had the opportunity to ask questions and assume patient care.
[2022-03-10 06:57] LABS: ALANINE AMINOTRANSFERASE 15 U/L (12-78); ALBUMIN 2.6 G/DL (3.4-5.0); ALBUMIN/GLOBULIN RATIO 0.8 (1.1-1.5); ALKALINE PHOSPHATASE 64 IU/L (46-116); ANION GAP 8 (8-16); ASPARTATE AMINO TRANSFERASE 19 U/L (10-37); BILIRUBIN,TOTAL 0.7 MG/DL (0.1-1.0); BLOOD UREA NITROGEN 14 MG/DL (7-18); BUN/CREATININE RATIO 11.8 (6.6-38.0); CALCIUM 7.7 MG/DL (8.5-10.1); CHLORIDE 104 MMOL/L (99-107); CREATININE 1.19 MG/DL (0.40-0.90); GLUCOSE 100 MG/DL (70-104); POTASSIUM 3.3 MMOL/L (3.5-5.1); SODIUM 143 MMOL/L (135-145); TOTAL CARBON DIOXIDE 30.6 MMOL/L (24-32); TOTAL PROTEIN 5.9 G/DL (6.4-8.2); eGFR 43 ML/MIN
[2022-03-10 08:00] VITALS: BP 152/70
[2022-03-10] MEDS: methyl salicylate/menthol cream 57gm TP SCH ×3 (08:00→21:00)
[2022-03-10] MEDS: K and/or MAG REPLACEMENT MC SCH ×2 (08:00→20:00)
--- NOTE | 2022-03-10 09:16 | NUR ---
Initial: pt admitted w/ stroke-like symptoms w/ aphasia, HTN emergency, and encephalopathy per EMR. Currently on Heart Healthy diet w/ moderate intake for age, avg 50% x 9 meals partially meeting needs. Recommend liberalizing to Regular diet given age and lipid panel. Will also provide smoothies TID for additional calories/protein. LBM 03/08. Will continue to monitor. Recs: 1. Consider liberalizing to Regular diet given age and lipid panel 2. Smoothies BID 3. Bowel care per rx 4. Weekly wts Addendum: 03/10/22 at [address] Amended: Links added.
[2022-03-10] MEDS: gabapentin 300mg capsule PO SCH ×2 (09:32→21:19)
[2022-03-10] MEDS: loratadine 10mg tablet PO SCH (09:32)
[2022-03-10] MEDS: levoTHYROXINE 25mcg tablet PO SCH (09:33)
[2022-03-10] MEDS: aspirin 81mg, enteric-coated 1 TAB TABLET.DR PO SCH (09:33)
[2022-03-10] MEDS: magnesium Cl slow-release 64mg tablet PO PRN ×2 (09:33→21:19)
[2022-03-10] MEDS: atorvastatin 20mg tablet PO SCH (09:33)
[2022-03-10] MEDS: hydrALAZINE 25 MG tablet PO SCH ×3 (09:34→16:16)
[2022-03-10] MEDS: ROPINIRole 1mg tablet PO SCH ×3 (09:34→21:19)
[2022-03-10] MEDS: duloxetine 30mg CAPSULE.DR PO SCH (09:34)
[2022-03-10] MEDS: losartan 50mg tablet PO SCH (09:35)
[2022-03-10] MEDS: pantoprazole 40mg Tablet.DR PO SCH ×2 (09:35→21:19)
[2022-03-10] MEDS: heparin, porcine 5000 units/ml vial SQ SCH ×2 (09:36→21:20)
[2022-03-10] MEDS: POTASSIUM BICARB 20meq eff tab 20 MEQ TABLET.EFF PO PRN ×3 (09:36→21:18)
[2022-03-10] MEDS: normal saline 1000ml 1,000 ML IV SCH (09:43)
[2022-03-10 10:00] VITALS: BP 140/53
[2022-03-10 15:00] VITALS: BP 138/65
[2022-03-10] MEDS: acetaminophen 325mg tablet PO PRN (16:15)
[2022-03-10 18:00] VITALS: BP 130/56
--- NOTE | 2022-03-10 18:06 | NUR ---
patient walked with PT see note. c/o headache medicated with tylenol with good result. . family visiting patient. no new concerns
--- NOTE | 2022-03-10 18:50 | NUR ---
Problems reprioritized. Patient report given, questions answered & plan of care reviewed with Stacy LINK.
--- NOTE | 2022-03-10 18:57 | NUR ---
Patient in room PCU 3027. I have received report from Arlen LINK and had the opportunity to ask questions and assume patient care.
[2022-03-10 22:00] VITALS: BP 156/77
[2022-03-11] MEDS: normal saline 1000ml 1,000 ML IV SCH (01:13)
[2022-03-11] MEDS: hydrALAZINE 25 MG tablet PO SCH ×2 (01:14→08:58)
[2022-03-11 02:00] VITALS: BP 156/85
[2022-03-11] MEDS: acetaminophen 325mg tablet PO PRN ×2 (05:02→13:57)
--- NOTE | 2022-03-11 06:25 | NUR ---
Problems reprioritized. Patient report given, questions answered & plan of care reviewed with Arlen LINK.
[2022-03-11 06:30] LABS: MAGNESIUM 1.1 MG/DL (1.5-2.4)
[2022-03-11 07:00] VITALS: BP 155/71
--- NOTE | 2022-03-11 07:05 | NUR ---
Patient in room PCU 3027. I have received report from sumi LINK and had the opportunity to ask questions and assume patient care.
[2022-03-11] MEDS: K and/or MAG REPLACEMENT MC SCH (08:00)
[2022-03-11] MEDS: ROPINIRole 1mg tablet PO SCH ×2 (09:00→13:28)
[2022-03-11] MEDS: duloxetine 30mg CAPSULE.DR PO SCH (09:00)
[2022-03-11] MEDS: magnesium Cl slow-release 64mg tablet PO PRN (09:00)
[2022-03-11] MEDS: aspirin 81mg, enteric-coated 1 TAB TABLET.DR PO SCH (09:00)
[2022-03-11] MEDS: pantoprazole 40mg Tablet.DR PO SCH (09:01)
[2022-03-11] MEDS: loratadine 10mg tablet PO SCH (09:01)
[2022-03-11] MEDS: levoTHYROXINE 25mcg tablet PO SCH (09:01)
[2022-03-11] MEDS: atorvastatin 20mg tablet PO SCH (09:02)
[2022-03-11] MEDS: gabapentin 300mg capsule PO SCH (09:02)
[2022-03-11] MEDS: heparin, porcine 5000 units/ml vial SQ SCH (09:07)
[2022-03-11] MEDS: losartan 50mg tablet PO SCH (09:08)
[2022-03-11 09:26] LABS: BASOPHILS # (AUTO) 0.1 X10'3 (0-0.2); BASOPHILS % (AUTO) 1.4 % (0-1); EOSINOPHILS # (AUTO) 0.2 X10'3 (0-0.9); EOSINOPHILS % (AUTO) 4.3 % (0-6); HEMATOCRIT 32.2 % (35.0-45.0); HEMOGLOBIN 10.7 g/dl (12.0-16.0); LYMPHOCYTES # (AUTO) 0.8 X10'3 (1.1-4.8); LYMPHOCYTES % (AUTO) 14.2 % (21-51); MEAN CORPUSCULAR HEMOGLOBIN 29.3 PG (27.0-31.0); MEAN CORPUSCULAR HGB CONC 33.2 g/dL (33.0-36.5); MEAN CORPUSCULAR VOLUME 88.4 FL (78-98); MEAN PLATELET VOLUME 8.8 FL (7.4-10.4); MONOCYTES # (AUTO) 0.5 X10'3 (0-0.9); MONOCYTES % (AUTO) 8.8 % (2-12); NEUTROPHILS % (AUTO) 71.3 % (42-75); PLATELET COUNT 158 X10'3 (140-440); RED BLOOD COUNT 3.64 X10'6 (4.20-5.60); RED CELL DISTRIBUTION WIDTH 16.3 % (11.5-14.5); WHITE BLOOD COUNT 5.6 X10'3 (4.5-11.0)
[2022-03-11 09:38] LABS: ALBUMIN 2.5 G/DL (3.4-5.0); ANION GAP 10 (8-16); BLOOD UREA NITROGEN 13 MG/DL (7-18); BUN/CREATININE RATIO 10.2 (6.6-38.0); CHLORIDE 105 MMOL/L (99-107); CREATININE 1.28 MG/DL (0.40-0.90); GLUCOSE 104 MG/DL (70-104); POTASSIUM 3.9 MMOL/L (3.5-5.1); SODIUM 142 MMOL/L (135-145); TOTAL CARBON DIOXIDE 27.3 MMOL/L (24-32); eGFR 40 ML/MIN
[2022-03-11 11:00] VITALS: BP 158/89
--- NOTE | 2022-03-11 13:09 | NUR ---
patient very pleasant, confused at times but easily re-orientated. Optifoam applied to tail bone area as patient stated when she was young she fell on a water fountain from a height and has chronic pain in her tailbone area. Mg 1.1 replaced x1. C/O headache. medicated with tylenol, will continue to monitor. Report called to Hannah LINK at [facility]. patient will be DC at 1345.
[2022-03-11] MEDS: methyl salicylate/menthol cream 57gm TP SCH ×2 (13:28→13:29)
--- NOTE | 2022-03-11 14:22 | NUR ---
patient c/o " bad" headache B/P 150/54 medicated with tylenol and wet wash cloth to head. Hannah LINK aware of headache at [facility]. DC to [facility] via [facility] in stable condition
[2022-03-13 16:29] LABS: CSF WEST NILE VIRUS, IGG Positive (Negative); CSF WEST NILE VIRUS, IGM Negative (Negative)
== END 2022-03-11 14:22 | DRG 78 ==
LOC: ER 11:59 → ED HOLD 15:05 → ORTHO 4S 19:28 → CICU 2S 03-07 04:27 → PCU 3S 03-09 14:50
PROVIDERS: ADMIT Internal Medicine; ATTEND Internal Medicine
PROC: 009U3ZX Drainage of Spinal Canal, Percutaneous Approach, Diagnostic (ICD-10-PCS; principal; 2022-03-07)
DX: I67.4 Hypertensive encephalopathy (principal); N17.9 Acute kidney failure, unspecified; G45.9 Transient cerebral ischemic attack, unspecified; I16.1 Hypertensive emergency; I69.351 Hemiplegia and hemiparesis following cerebral infarction affecting right dominant side; R47.01 Aphasia; G62.9 Polyneuropathy, unspecified; E88.09 Other disorders of plasma-protein metabolism, not elsewhere classified; D63.8 Anemia in other chronic diseases classified elsewhere; E83.42 Hypomagnesemia; F03.90 Unspecified dementia, unspecified severity, without behavioral disturbance, psychotic disturbance, mood disturbance, and anxiety; E87.6 Hypokalemia; E03.9 Hypothyroidism, unspecified; H57.11 Ocular pain, right eye; G89.29 Other chronic pain; M54.9 Dorsalgia, unspecified; I10 Essential (primary) hypertension; Z82.49 Family history of ischemic heart disease and other diseases of the circulatory system; Z90.49 Acquired absence of other specified parts of digestive tract; Z88.5 Allergy status to narcotic agent; Z88.8 Allergy status to other drugs, medicaments and biological substances; Z87.440 Personal history of urinary (tract) infections; Z79.899 Other long term (current) drug therapy
CPT/HCPCS: 36415; 70450; 71045; 80048; 80053; 80061; 82945; 82948; 83605; 83735; 84100; 84132; 84157; 84443; 84484; 85025; 85610; 85730; 86788; 86789; 87015; 87040; 87070; 87081; 89051; 92508; 92616; 93005; 93306; 93880; 94799; 97110; 97116; 97161; 97162; 97530; 99285; A4615; A6212; A6213; C1758; G0378; J1644; J2060; J2270; J2405; J3490; J7030

== ENCOUNTER 2024-02-04 08:14 | Day surgery (SDC) | payer MEDICARE, MEDICAID ==
[2024-02-03 17:17] LABS: BASOPHILS # (AUTO) 0.1 X10'3 (0-0.2); BASOPHILS % (AUTO) 1.2 % (0-1); EOSINOPHILS # (AUTO) 0.2 X10'3 (0-0.9); LYMPHOCYTES # (AUTO) 0.8 X10'3 (1.1-4.8); LYMPHOCYTES % (AUTO) 14.6 % (21-51); MEAN CORPUSCULAR HGB CONC 33.6 g/dL (33.0-36.5); MEAN CORPUSCULAR VOLUME 89.5 FL (78-98); MEAN PLATELET VOLUME 8.2 FL (7.4-10.4); MONOCYTES # (AUTO) 0.5 X10'3 (0-0.9); MONOCYTES % (AUTO) 8.3 % (2-12); NEUTROPHILS # (AUTO) 4.1 X10'3 (1.8-7.7); NEUTROPHILS % (AUTO) 72.9 % (42-75); PRE OP HEMATOCRIT 33.7 % (35.0-45.0); PRE OP HEMOGLOBIN 11.3 g/dL (12.0-16.0); PRE OP PLATELET COUNT 171 X10'3 (140-440); PRE OP WHITE BLOOD COUNT 5.6 10'3 (4.8-10.8); RED BLOOD COUNT 3.76 X10'6 (4.20-5.60); RED CELL DISTRIBUTION WIDTH 14.7 % (11.5-14.5)
[2024-02-03 17:26] LABS: PRE OP PROTIME 10.8 SECONDS (9.0-12.0)
[2024-02-03 17:26] LABS: BILIRUBIN,URINE NEGATIVE (Neg); CLARITY,URINE SLIGHTLY CLOUDY (Clear); COLOR,URINE YELLOW (Yellow); GLUCOSE, URINE NEGATIVE (Neg); KETONES,URINE NEGATIVE (Neg); LEUKOCYTE ESTERASE ,URINE NEGATIVE (Neg); NITRITES, URINE NEGATIVE (Neg); OCCULT BLOOD,URINE NEGATIVE (Neg); PROTEIN,URINE 100 mg/dl (Neg); UROBILINOGEN,URINE 0.2 E.U/dL (0.2-1.0)
[2024-02-03 17:28] LABS: ALBUMIN 3.1 G/DL (3.4-5.0); ALBUMIN/GLOBULIN RATIO 0.9 (1.1-1.5); ALKALINE PHOSPHATASE 64 IU/L (46-116); BLOOD UREA NITROGEN 42 MG/DL (7-18); BUN/CREATININE RATIO 33.1 (10.0-20.0); CALCIUM 8.3 MG/DL (8.5-10.1); CHLORIDE 104 MMOL/L (99-107); CREATININE 1.27 MG/DL (0.40-0.90); PRE OP ALT 23 U/L (30-65); PRE OP ANION GAP 9 (8-16); PRE OP AST 29 U/L (10-37); PRE OP BILIRUB, TOTAL 0.5 MG/DL (0.0-1.0); PRE OP GLUCOSE 157 MG/DL (70-104); PRE OP SODIUM 139 MMOL/L (135-145); TOTAL CARBON DIOXIDE 26.2 MMOL/L (24-32); TOTAL PROTEIN 6.4 G/DL (6.4-8.2); eCRCL 24 ML/MIN; eGFR 40 ML/MIN
[2024-02-03 17:38] LABS: PRE OP POTASSIUM 3.1 MMOL/L (3.4-5.1)
[2024-02-03 17:46] LABS: UA COLLECTION TYPE NON-SPECIFIED
[2024-02-03 17:47] LABS: BACTERIA,URINE 3+ /HPF (Neg); MUCUS STRANDS FEW /LPF (Neg); RBC,URINE 0-2 /HPF (0-2); SQUAMOUS EPITHELIAL CELL,UR FEW /LPF (FEW)
[2024-02-03 17:48] LABS: TRANSITIONAL EPI CELLS,URINE FEW /HPF; WBC CLUMPS,URINE FEW /HPF (NEGATIVE)
[~2024-02-04] VITALS: Ht 157.5 cm; Wt 73.0 kg
[2024-02-04] MEDS: ceFOXitin 2GM-NS 100mL ADDvant 100 ML IV ONE (05:30)
[~2024-02-04 08:14] MED LIST changes: -AMLO10TA13 PO; -AMOX1TAB PO; -ASPI-10 PO; +ATOR40TA71 PO; -ATOR40TA72 PO; -CHOL100025 PO; +DOCUMENT DATE & TIME OF BETA-BLOCKER PO ONE; +DULO60CA65 PO; -FLUO40CA PO; -GABA300C PO; -HYDR-3968 PO; -LORA10TA7 PO; -MAGN200T PO; -METO-384 PO; +METO-395 PO; +MONT-40 PO; -PANT40TA54 PO; -POTA-197 PO; -PRAM0.5T12 PO; +RIVA15TA PO; +ROPI1TAB47 PO; -ROPI1TAB6 PO; +VALS40TA11 PO; -VIT1CAPS9 PO; -VITA1TAB37 PO
[2024-02-04] MEDS: famotidine 20mg tablet PO ONE (09:43)
[2024-02-04] MEDS: ringers solution, lacted 1,000 ML IV SCH (09:43)
[2024-02-04 09:50] LABS: ALBUMIN 3.2 G/DL (3.4-5.0); ALKALINE PHOSPHATASE 64 IU/L (46-116); BLOOD UREA NITROGEN 40 MG/DL (7-18); BUN/CREATININE RATIO 30.5 (10.0-20.0); CALCIUM 8.3 MG/DL (8.5-10.1); CHLORIDE 105 MMOL/L (99-107); CREATININE 1.31 MG/DL (0.40-0.90); PRE OP ALT 26 U/L (30-65); PRE OP ANION GAP 9 (8-16); PRE OP AST 26 U/L (10-37); PRE OP BILIRUB, TOTAL 0.4 MG/DL (0.0-1.0); PRE OP GLUCOSE 112 MG/DL (70-104); PRE OP POTASSIUM 3.8 MMOL/L (3.4-5.1); PRE OP SODIUM 140 MMOL/L (135-145); TOTAL CARBON DIOXIDE 26.5 MMOL/L (24-32); TOTAL PROTEIN 6.5 G/DL (6.4-8.2); eCRCL 23 ML/MIN; eGFR 38 ML/MIN
== END 2024-02-04 10:34 | disposition home or self-care (01) ==
LOC: PRE-OP 08:14
PROVIDERS: ATTEND Surgery
DX: K43.9 Ventral hernia without obstruction or gangrene (principal); I45.10 Unspecified right bundle-branch block; Z53.8 Procedure and treatment not carried out for other reasons
CPT/HCPCS: 36415; 71045; 71046; 80053; 81001; 82948; 85025; 85610; 85730; 86870; 86885; 86900; 86901; 86902; 86905; 87088; 93005; J0694; J7120

== ENCOUNTER 2025-02-05 14:15 | Emergency (ER) | payer MEDICARE, MEDICAID ==
[~2025-02-05] VITALS: Ht 162.6 cm; Wt 73.2 kg
[~2025-02-05 14:15] MED LIST changes: -DOCUMENT DATE & TIME OF BETA-BLOCKER PO ONE
--- NOTE | 2025-02-05 14:29 | ELECTROCARDIOGRAPH REPORT ---
[facility] Test Date: 2025-02-05 Test Time: 14:27:53 Pat Name: SILVER THOMAS Department: [facility]-ER Patient ID: [facility]-[id number] Room: Gender: F Efficiency Expert: : 1935 Requested By: YESSI SMITH Order Number: [id number] Reading MD: Dr. Primitivo Bautista Measurements Intervals [place] Rate: 58 P: 77 MS: 189 QRS: 50 QRSD: 158 T: 18 QT: 490 QTc: 482 Interpretive Statements Ventricular-paced complexes No further rhythm analysis attempted due to paced rhythm Right bundle branch block Electronically Signed On 02-07-2025 21:44:[address] Primitivo Bautista Please click the below link to view image of tracing.
--- NOTE | 2025-02-05 15:19 | Physician Documentation ---
History of Present Illness ~ Chief Complaint: Confused Stated Complaint: ALOC Time Seen by MD: 14:50 Primary Medical Doctor: Fabiola Can Mode of Arrival: EMS, Stretcher [facility] This is a 89-year-old female who was brought in for evaluation of not acting right. She has no somatic complaints whatsoever. The report was that she was confused. She is not confused, she is alert and oriented x4. She very specifically does not want any medical evaluation and states that she did not want to come here in the 1st place. Specifically denies any headache, chest pain, difficulty breathing, nausea, vomiting, diarrhea, abdominal pain, dysuria hematuria. Recently has been treated for UTI. Has no UTI symptoms. No concern for tobacco, alcohol or illicit substances use. Medication Reconciliation Allergies: Coded Allergies: codeine (Verified Allergy, Unknown, 08/23/21) morphine okay - has had before metoclopramide (Verified Allergy, Unknown, 08/26/21) restless legs Scheduled Atorvastatin Calcium (Atorvastatin Calcium), 1 TAB PO DAILY, (Reported) Duloxetine HCl (Duloxetine HCl), 1 CAP PO DAILY, (Reported) Levothyroxine Sodium (Levothyroxine Sodium), 1 TAB PO DAILY, (Reported) Metoprolol Succinate (Metoprolol Succinate), 1 TAB PO HS, (Reported) Montelukast Sodium (Montelukast Sodium), 1 TAB PO DAILY, (Reported) Pentoxifylline (Pentoxifylline), 1 TAB PO TID, (Reported) Rivaroxaban (Xarelto), 1 TAB PO DAILY, (Reported) Ropinirole Hcl (Ropinirole Hcl), 1 MG PO TID, (Reported) Valsartan (Valsartan), 1 TAB PO DAILY, (Reported) Past Medical History Past Medical History: CVA/TIA/Stroke, Peripheral Neuropathy, Hypertension, Diverticulitis, UTI, Chronic Back Pain, Extremity Fracture Past Surgical History: appendectomy, cholecystectomy, orthopedic surgeries, other Alcohol Use: None Drug Use: none Lives In: Home Review of Systems ROS 10 point review of systems was performed and unless noted above in HPI is negative for acute process/complaint. Physical Exam Vital Signs: Temperature: 98.2, Source: Temporal, Heart Rate: 57, Respiratory Rate: 14, BP: 138/75, Pulse Oximetry: 96, Weight: 73.200 Oxygen Flow Rate: 0 Physical Exam GENERAL: Awake, alert, oriented, GCS 15, no apparent distress, non-toxic appearing, answers questions, follows commands appropriately. HEENT: Atraumatic, normocephalic, pupils equal, extraocular muscles intact, sclerae anicteric, mucus membranes moist, oropharynx is clear, no stridor. NECK: supple, full active range of motion, trachea midline, no thyromegaly, no lymphadenopathy, no JVD. CARDIOVASCULAR: regular rate/rhythm, no murmurs/gallops/rubs, Pulses are 2+ in all extremities and symmetric. Capillary refill less than 2 seconds. PULMONARY: Nonlabored, good air movement ,no respiratory distress, speaking in full sentences, clear to auscultation bilaterally, no wheezing, no ronchi, no rales, no accessory muscle use. GASTROINTESTINAL: Soft, non-tender, non-distended, normal active bowel sounds, no organomegaly, no pulsatile masses, no CVA tenderness. NEUROLOGIC: Lucid with normal mental status. Normal facial symmetry. Moves all extremities symmetrically and with purpose. No truncal ataxia. Speech is fluid without evidence of dysarthria or aphasia, no focal deficits appreciated. MUSCULOSKELETAL: There is full range of motion of all extremities. There is no joint pain or joint swelling or joint erythema. There is no muscle pain or tenderness or swelling. EXTREMITIES: warm, well-perfused, no cyanosis, no clubbing, no edema, no acute deformities. Skin: warm, dry, no rashes or lesions, no jaundice, no petechiae orpurpura. No ecchymosis. PSYCHIATRIC: Normal affect, normal insight, normal concentration. Focused exam: [] Progress Results/Orders Results/Orders Completed Orders - YESSI SMITH DO Electrocardiogram (02/05/25 ) Vital Signs 02/05/25 02/05/25 14:26 14:29 Temp 98.2 Pulse 57 Resp 16 14 B/P (MAP) 138/75 Pulse Ox 96 O2 Flow Rate 0 Medical Decision Making Findings Facility Status: ED Holds, E process The plan was discussed with the patient, who demonstrates clear understanding of the plan and is in agreement with the plan unless otherwise noted in the chart. All questions have been answered, all concerns were addressed unless otherwise documented. I was available throughout their ED stay for frequent reassessment and questions. Differential Diagnoses (considered and possible or likely): [This could very well represent over zealous staff at the residential facility sending patient in for evaluation when patient does not want to be evaluated. They are acting against the patient's wishes. I did consider urinary tract infection, pneumonia, occult bacteremia, dehydration and electrolyte derangement, however the patient has no somatic complaints whatsoever and does not want any further evaluation.] ??Differential Diagnoses (considered and unlikely, not requiring evaluation currently): [No evidence of lateralizing signs to suspect a stroke, no trauma] MDM Data Please see [facility] for the following: Independent Historians and external Records Review. Historian: [Patient] Independent Historians: ?[Record review] Medication Management: [Reviewed medication list] Social History and determinants: [Reviewed] Please see the body of the note for the following: Any independent interpretations of ECG, imaging studies. All vitals signs/haemodynamics, ordered tests were independently reviewed and interpreted by myself. Nursing triage complaint and vitals reviewed, additional nursing notes were reviewed as available and I agree unless otherwise noted or documented in contradiction in the chart Vital Signs: Independently reviewed Labs: Independently interpreted Imaging: Independently interpreted Old Medical Records: Independently reviewed, see HPI for relevant summary and information Pulse Oximetry: [95%] interpreted as [normal on room air] by me [Looper Operator: [Regular Rate, Regular rhythm, no ectopy, NSR] reviewed and interpreted by me] Additionally notably showing: [Hemodynamically stable.] Tests considered but not order is a ed include: [Hematologic workup and imaging has been considered but does not appear to be necessary given clinical nature of diagnosis] Social Determinants of Health Impact: Patient was evaluated in [facility] [place] to healthcare due to below par ratio of patient to medical providers. [] Comorbid Conditions Impacting Present Evaluation and Care/Treatment: [See list] Management Discussions with other Healthcare Providers: [] Treatment and Disposition Medication Management (Given or considered): []. See EMR for details Consideration for Hospitalization/Escalation/Deescalation of Care: Admission for observation has been considered, [however the patient is able to tolerate p.o., their symptoms are controlled, they are able to rely on oral medications, and their chief complaint/diagnosis can be managed on outpatient basis.] ?ED Course:?[Patient is alert and oriented x4, she does not want any medical evaluation, she prefers to be transported back to the facility. She is not confused. I will respect the patient's wishes and we will not conduct laboratory workup or imaging.] ?Shared decision making:?[Patient is hemodynamically stable for discharge home with follow with their primary care provider. [ ] Specific and cautious return precautions provided and discussed with full understanding. Any incidental findings were also discussed and follow up recommendations given. [] All q uestions answered. Patient/family were able to verbalize back return precautions. Patient/family agree to plan. Copies of imaging and laboratory studies were provided.] Code status:?FULL Please see the full Electronic Medical Record for full details of nursing documentation, medications list, other records of complete past medical history and conditions, vital signs, laboratory studies, and any radiologic study interpretations by radiologists. Portions of this note were completed using [employer] dictation software and as a result there may exist minor errors in spelling. I have reviewed elements of past family and social history and agree as included in note. Departure Disposition: 01 HOME / SELF CARE / HOMELESS Impression: Primary Impression: Encounter for medical screening examination Condition: Improved Discharge Instructions: Medical Screening Exam Referrals: NO PRIMARY CARE PROVIDER (PCP) Education Educated: Patient Educated regarding: diagnosis, treatment, prognosis, need for follow up Signature Scribe Signature: No scribe Attestation: This note accurately reflects clinical decisions, work performed by myself, DO SARAH Rodriguez NICHOLAS M DO February 05, 2025 15:19
[2025-02-05 16:28] VITALS: BP 136/76; PULSE 86; RESP 18; TEMP 98.2; O2SAT 100
== END 2025-02-05 16:32 | disposition home or self-care (01) ==
LOC: ER 14:16
DX: Z00.8 Encounter for other general examination (principal); I10 Essential (primary) hypertension; Z86.73 Personal history of transient ischemic attack (TIA), and cerebral infarction without residual deficits; Z88.5 Allergy status to narcotic agent; Z88.8 Allergy status to other drugs, medicaments and biological substances; Z90.49 Acquired absence of other specified parts of digestive tract
CPT/HCPCS: 93005; 99284